=== PATIENT | male | born 1970 | race Two or more races ===

== ENCOUNTER 2024-12-23 10:01 | Outpatient (AMB) | payer BC, SELFPAY ==
[2024-12-23 10:40] VITALS: BP 146/96; PULSE 103; RESP 19; TEMP 36.4; O2SAT 95; BMI 33.5
--- NOTE | 2024-12-23 10:40 | PD.ORTHCLVIS ---
Vital signs 12/23/24 10:40 Height 1.8 m Height Method Stated Weight 108.976 kg Weight Measurement Method Standing Scale BMI 33.5 BP 146/96 H Blood Pressure Source Automatic Cuff Blood Pressure Location Left Upper Arm Position Sitting Respiration 19 Pulse 103 H Pulse Source Monitor Temp 97.5 F Temp Source Temporal Artery Scan Pulse Oximetry (%) 95 Oxygen Delivery Method Room Air Med/Allergies Allergies & Medications Allergies Bee Stings Allergy (Severe, Uncoded 12/23/24 10:41) SWELLING Medication Reconciliation No Known Home Medications 10/24/18 [History Confirmed 12/23/24] Exam Exam Patient is in no acute distress and is cooperative with the examination today. Breathing is nonlabored. In no respiratory distress. Patient has no paraspinal tenderness. Spinal deformity cannot be appreciated. The gait of the patient is nonantalgic Bilateral extremities were evaluated and demonstrates sensation intact to light touch. Palpable pedal pulses are present. No significant edema is present. Bilateral knees were examined and the patient has full strength and range of motion.. The right hip was examined. Patient was able to flex to 90 degrees, adduct to 30 degrees, abduct to 40 degrees, internally rotate to 20 degrees, and externally rotate to 20 degrees. Patient has a negative logroll. Stinchfield is negative. The patient is nontender diffusely to touch. The left hip was examined. Patient was able to flex to 90 degrees, adduct to 30 degrees, abduct to 40 degrees, internally rotate to 5 degrees, and externally rotate to 20 degrees. Patient has a positive logroll and positive Stinchfield X-rays demonstrate significant lumbar degenerative disease. He also has significant left hip arthritis. There is sclerosis of the femoral head which may indicate avascular porosis Assessment and Plan Problem List (1) Arthritis of left hip: Status: Acute Plan: Patient is a 54-year-old male with a left hip pain and degenerative changes of his left hip. He does have concomitant back pain. I discussed that we can do a cortisone injection to help differentiate the hip from back pain. He is not interested in this as he is afraid of needles. We also discussed continue conservative treatment. I will give him an MRI to rule out avascular necrosis as the radiologist believes it could be AVN and there is sclerosis of the femoral head Office Procedures GNS Level of Care Nursing/Assessment Patient Status: Initial/New Patient Nursing Assessment/Reassesment: Medication Reconciliation, Update PMH in EMR and Vital Signs Coordination of Care: Complex Care and Chronic Disease 1-5, Education Complex Pt/Fam, Consent,records obtained, informed consent, 1 Ins Authorization, Lab and Imaging orders, Results/Orders obtained and Staff clarify orders New Patient Charge New Patient Point Assignment: 1124 New Patient Point Charge: TERRITORY REPRESENTATIVE Level 4 ([id number]) MA Intake Visit Data Collection New Patient or Established: New Patient (never been to [facility]) Reason for Visit:: HIP PAIN Seen by Clinical Staff ONLY (RN/MA): No Gift 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 Required: No PCP or OBGYN visit in last 3 months: Yes Hx Now: No Do You Feel Safe at Home: Yes Authorities Contacted: N/A Questionairres Past Medical History Past Medical History Have you ever been diagnosed with any of the following: Cardiology Problems Congestive Heart Failure: No Respiratory Problems Chronic Obstructive Pulmonary Disease (COPD): No Genital/Urinary Problems Renal Disease: No Endocrine Problems Diabetes Mellitus Type 1: No Diabetes Mellitus Type 2: No Subjective Visit Visit for: new patient and hip Immunization / Flu Flu Vaccine in the Last 12 Months: No Flu Vaccine Exclusion Criteria: Refused by Patient History of Present Illness Chief complaint: Left hip pain Tom is a pleasant 54-year-old male with left hip pain and left hip arthritis. He also has chronic back issues with numbness and tingling that goes down his leg. He reports he has difficulty tying his shoes. He has not had any injections. He has tried anti-inflammatories in the past. He is deathly afraid of needles Pain Pain level (0-10): 7 Pain duration: ALL DAY Pain location: anterior Pain quality: sharp, dull and aching Pain timing: night and increases with activity Associated signs & symptoms: other (specify) (LIMPING) Ambulatory data Ambulatory device: none Treatments Improvement with previous injections: No Improvement with PT: No Improvement with NSAIDS: no Review of Systems Review of Systems: All systems negative unless otherwise noted in HPI.
== END 2024-12-23 11:16 | disposition home or self-care (01) ==
LOC: HODSRG 10:01
PROVIDERS: PCP Family Medicine; Referring Provider Family Medicine; Supervising Provider Orthopaedic Surgery Adult Reconstructive Orthopaedic Surgery; Visit Provider Orthopaedic Surgery Adult Reconstructive Orthopaedic Surgery
DX: M16.12 Unilateral primary osteoarthritis, left hip (principal); M25.552 Pain in left hip; R20.0 Anesthesia of skin; R20.2 Paresthesia of skin
CPT/HCPCS: 99204; G0463

== ENCOUNTER → 2025-01-05 | Outpatient (CLI) | payer BC, SELFPAY ==
--- NOTE | 2025-01-05 15:45 | XR_ITS ---
Examination: MRI lumbar spine without contrast Date and time of exam: January 05, 2025 1619 hrs. Indications: Low back pain 3 years Technique: Multiple MRI axial and sagittal sections lumbar spine. Sagittal T2-weighted images, TR 3500, TE 118 T1 weighted transverse sections, TR 688 T8.5, T2-weighted sagittal sections T1 weighted sagittal sections TR 621, TE 30 T2 axial sections, TR 4, 190, TE 84. Findings: Adequate alignment lumbar vertebral bodies Diffuse advanced lumbar disc narrowing L5-S1 6 mm central lumbar disc bulge L4-L5 7 mm central lumbar disc bulge L3-L4 2 mm central lumbar disc bulge L2-L3 small foraminal disc bulges L1-2 no disc protrusion no disc protrusion Impression: L5-S1 6 mm central lumbar disc bulge L4-L5 7 mm central disc bulge
== END | disposition home or self-care (01) ==
LOC: SMRI 15:25
PROVIDERS: PCP Registered Nurse; Referring Provider Registered Nurse; Visit Provider Registered Nurse
DX: M51.369 Other intervertebral disc degeneration, lumbar region without mention of lumbar back pain or lower extremity pain (principal); M51.379 Other intervertebral disc degeneration, lumbosacral region without mention of lumbar back pain or lower extremity pain
CPT/HCPCS: 72148

== ENCOUNTER → 2025-01-23 | Outpatient (CLI) | payer BC, SELFPAY ==
--- NOTE | 2025-01-23 07:00 | XR_ITS ---
Examination: MRI left hip without intravenous contrast. Date and time of exam: January 15, 2025 0727 hours INDICATIONS: Left-sided hip pain 18 sensation 3 years Technique: Multiple MRI images of the left hip have been obtained T1 weighted coronal sections, TR 500, TE 12 Proton density coronal fat saturated images, TR 3000, TE 71 T2-weighted coronal images, 5850, TE 104 T1-weighted axial images, TR 521, TE 12 T2-weighted axial fat suppressed images, TR 5730, TE 103. Findings: Advanced left hip osteoarthritis, joint space narrowing Avascular necrosis left femoral head involving less than 50% of the articulating surface Moderate narrowing right hip joint Bones the pelvis intact No pelvic mass IMPRESSION: Advanced left hip osteoarthritis Avascular necrosis left femoral head
== END | disposition home or self-care (01) ==
LOC: SMRI 07:09
PROVIDERS: PCP Family Medicine; Referring Provider Orthopaedic Surgery Adult Reconstructive Orthopaedic Surgery; Visit Provider Orthopaedic Surgery Adult Reconstructive Orthopaedic Surgery
DX: M16.12 Unilateral primary osteoarthritis, left hip (principal); M87.852 Other osteonecrosis, left femur
CPT/HCPCS: 73721

== ENCOUNTER 2025-02-10 09:14 | Outpatient (AMB) | payer BC, SELFPAY ==
[2025-02-10 09:29] VITALS: BP 125/95; PULSE 118; RESP 17; TEMP 36.4; O2SAT 97; BMI 32.6
--- NOTE | 2025-02-10 09:29 | ORTHONT_ITS ---
Vital signs 02/10/25 09:29 Height 1.8 m Height Method Stated Weight 105.744 kg Weight Measurement Method Standing Scale BMI 32.6 BP 125/95 H Blood Pressure Source Automatic Cuff Blood Pressure Location Right Upper Arm Position Sitting Respiration 17 Pulse 118 H Pulse Source Monitor Temp 97.5 F Temp Source Temporal Artery Scan Pulse Oximetry (%) 97 Oxygen Delivery Method Room Air Med/Allergies Allergies & Medications Allergies Bee Stings Allergy (Severe, Uncoded 02/10/25 09:31) SWELLING Medication Reconciliation metformin 500 mg tablet 500 mg PO BID 02/10/25 [History Confirmed 02/10/25] Exam Exam Patient is in no acute distress and is cooperative with the examination today. Breathing is nonlabored. In no respiratory distress. Patient has no paraspinal tenderness. Spinal deformity cannot be appreciated. The gait of the patient is nonantalgic Bilateral extremities were evaluated and demonstrates sensation intact to light touch. Palpable pedal pulses are present. No significant edema is present. Bilateral knees were examined and the patient has full strength and range of motion.. The right hip was examined. Patient was able to flex to 90 degrees, adduct to 30 degrees, abduct to 40 degrees, internally rotate to 20 degrees, and externally rotate to 20 degrees. Patient has a negative logroll. Stinchfield is negative. The patient is nontender diffusely to touch. The left hip was examined. Patient was able to flex to 90 degrees, adduct to 30 degrees, abduct to 40 degrees, internally rotate to 5 degrees, and externally rotate to 20 degrees. Patient has a positive logroll and positive Stinchfield X-rays demonstrate significant lumbar degenerative disease. He also has significant left hip arthritis. There is sclerosis of the femoral head which may indicate avascular Necrosis An MRI of the left hip was obtained as well. This demonstrates avascular necrosis and subchondral edema Assessment and Plan Problem List (1) Arthritis of left hip: Status: Acute Plan: Patient is a 54-year-old male with a left hip pain and degenerative changes of his left hip. He does have concomitant back pain. I discussed that we can do a cortisone injection to help differentiate the hip from back pain. He is not interested in this as he is afraid of needles. We also discussed continue conservative treatment. We obtained an MRI he does have avascular porosis which is confirmed. He would like to do physical therapy and does not want any other Measures at this time Office Procedures GNS Level of Care Nursing/Assessment Patient Status: Established Patient Nursing Assessment/Reassesment: Medication Reconciliation and Update PMH in EMR Coordination of Care: Complex Care and Chronic Disease 1-5, Consent,records obtained, informed consent, Education Simp Pt/Fam, Results/Orders obtained and Staff clarify orders Established Patient Charge Established Patient Point Assignment: 75 Established Patient Point Charge: EP Level 2 (40-75) MA Intake Visit Data Collection New Patient or Established: Established Patient (seen at [facility] within 3 years) Reason for Visit:: LT HIP MRI RESULT Seen by Clinical Staff ONLY (RN/MA): No 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: No PCP or OBGYN visit in last 3 months: Yes Hx Now: No Do You Feel Safe at Home: Yes Authorities Contacted: N/A Questionairres Past Medical History Past Medical History Have you ever been diagnosed with any of the following: Cardiology Problems Congestive Heart Failure: No Respiratory Problems Chronic Obstructive Pulmonary Disease (COPD): No Smoking: No Smoking Cessation Counseling: No Smoking Exposure: No Tobacco Use: No Genital/Urinary Problems Renal Disease: No Endocrine Problems Diabetes Mellitus Type 1: No Diabetes Mellitus Type 2: No Subjective Visit Visit for: follow up visit and hip (LEFT ) Immunization / Flu Flu Vaccine in the Last 12 Months: Yes Flu Vaccine Exclusion Criteria: Already Received History of Present Illness Chief complaint: Left hip pain Tom is a pleasant 54-year-old male with left hip pain and left hip arthritis. He also has chronic back issues with numbness and tingling that goes down his leg. He reports he has difficulty tying his shoes. He has not had any injections. He has tried anti-inflammatories in the past. He is deathly afraid of needles. We obtained an MRI of his left hip and he does have avascular necrosis Personal History Red flag PMH: none Pain Pain level (0-10): 5 Pain duration: 2 YEARS Pain location: groin Pain quality: sharp and aching Pain timing: night and increases with activity Associated signs & symptoms: none Ambulatory data Ambulatory device: none Walking distance (minutes): 5 Treatments Number of previous injections: 0 Improvement with previous injections: No Number of Physical Therapy sessions: 0 Improvement with PT: No Improvement with NSAIDS: n/a Review of Systems Review of Systems: All systems negative unless otherwise noted in HPI.
== END 2025-02-10 09:36 | disposition home or self-care (01) ==
LOC: HODSRG 09:14
PROVIDERS: PCP Family Medicine; Referring Provider Family Medicine; Supervising Provider Orthopaedic Surgery Adult Reconstructive Orthopaedic Surgery; Visit Provider Orthopaedic Surgery Adult Reconstructive Orthopaedic Surgery
DX: M16.12 Unilateral primary osteoarthritis, left hip (principal); M25.552 Pain in left hip; M54.9 Dorsalgia, unspecified; M87.88 Other osteonecrosis, other site
CPT/HCPCS: 99212; G0463